=== PATIENT | female | born 1970 | race Caucasian/White ===

== ENCOUNTER → 2023-09-27 | Day surgery (SDC) | payer BC ==
--- NOTE | 2023-09-26 18:09 | HP ---
HISTORY AND PHYSICAL CHIEF COMPLAINT: Chronic laryngitis. HISTORY OF PRESENT ILLNESS: This patient is a 52-year-old female, who was recently seen in my office, complaining of having chronic laryngitis for at least a year. The patient quit smoking approximately 2 packs of cigarettes per day approximately 1 year ago and has not used any tobacco products since. She has seen Dr. Randy Car in the past, who felt that she might have a lesion on her vocal cord. At the time that she is seen in my office, clinical examination of the oropharynx including indirect laryngoscopy revealed evidence of a moderate polypoid lesion located in the midportion of the left true vocal cord. I am not able to see all of her larynx because of an overhanging epiglottis. It was recommend the patient undergo a suspension microlaryngoscopy with biopsy and possible laser of a left true vocal cord lesion under general anesthesia. PAST MEDICAL HISTORY: Reveals that the patient has no known allergies to medications. CURRENT MEDICATIONS: Include: 1. Wegovy (for weight loss). 2. Adderall. 3. Amlodipine. 4. Losartan. 5. Prilosec. 6. Trelegy. 7. Trulicity. 8. Albuterol. REVIEW OF SYSTEMS: CARDIOVASCULAR SYSTEM: Positive for hypertension. RESPIRATORY: Positive for emphysema/COPD. GASTROINTESTINAL: Positive for GERD (gastroesophageal reflux disorder). METABOLIC ENDOCRINE: Negative. Remainder of the review of systems is unremarkable. PREVIOUS SURGERIES: Include cholecystectomy, upper endoscopy of the stomach. She is 4 para, 4 , 0 miscarriage. PHYSICAL EXAMINATION: GENERAL: This patient is a 52-year-old female, who was alert and cooperative. HEENT: The patient is normocephalic. Tympanic membranes are normal. Middle ear spaces are free of any fluid or infection. Pupils are equal, round, and reactive to light and accommodation. Extraocular movements within normal limits. Intranasal examination reveals moderate septal deviation with compensatory hypertrophy of the inferior turbinates. Examination of the oropharynx including indirect laryngoscopy, reveals an apparent polypoid lesion on the left true vocal cord. Remainder of the head and neck exam is essentially unremarkable. CHEST/CARDIOVASCULAR: Both lung martin are clear to percussion and auscultation. The patient is in regular sinus rhythm. Lung sounds are distant, but there are no rales, rhonchi, or wheezes. The patient has regular sinus rhythm. S1 and S2 are present without any murmurs, S3s or S4s. Peripheral pulses are bilaterally symmetrical. ABDOMEN: There is no evidence any masses, megaly, or tenderness. The abdomen is soft. SKIN: Unremarkable. MUSCULOSKELETAL: Within normal limits. NEUROLOGICAL: Within normal limits. PELVIC/RECTAL: Deferred at this time because the patient has this done on a regular basis at her family physician's office. The remainder of physical exam is unremarkable. ASSESSMENT: Chronic laryngitis with laryngeal lesion of the left true vocal cord. PLAN: The patient is scheduled to undergo a suspension microlaryngoscopy with biopsy and laser of a lesion of the left true vocal cord under general anesthesia in a.m. Attention, RNs in the pre-surgical area. I have ordered for this patient to receive 1000 mg of Ofirmev IV to be given once an intravenous line has been established. I have also ordered for her to receive 2 g of Rocephin IV to be given once an intravenous line has been established. If the pharmacy department sends a different pre-surgical prophylactic antibiotic to the pre-surgical area for this patient, please cancel that order and return the medication to the pharmacy department. Also make sure that the patient's account is credited appropriately. I have discussed the risks, benefits and alternative therapies for the above-mentioned procedure and for both sedation/analgesia as well as necessary blood product administration, if indicated, as they pertain to this patient. The patient has indicated her understanding and acceptance of the risks and procedures discussed. MMODL / IJN: [id number] /
[~2023-09-27] MED LIST: DEXAMETHASONE SOD PHOSPHATE 10 MG/ML 1 ML VIAL ONE; HYDROmorphone (PF) 1 MG/ML ONE; HYDROmorphone 0.5 MG/0.5 ML SYRINGE IVP PRN; LIDOCAINE 1% INJ 10MG/ML (20 ML MDV) ONE; MIDAZOLAM 2 MG/2 ML VIAL IV PRN; MIDAZOLAM 2 MG/2 ML VIAL ONE; PHENYLEPHRINE 10 MG/ML VIAL ONE; PROPOFOL 10 MG/ML 20 ML VIAL IV ONE; Pre Op ABX Message 1 EACH MISC MISCELLANE ONE; SUCCINYLCHOLINE CHLORIDE 200 MG/10 ML VIAL IV ONE; fentaNYL (PF) 50 MCG/ML 2 ML AMP IVP PRN; fentaNYL (PF) 50 MCG/ML 2 ML AMP ONE
[2023-09-27] MEDS: IV FLUID CONTINUATION 1,000 ML IV ONE (10:45)
[2023-09-27] MEDS: LACTATED RINGERS 1,000 ML IV SCH (10:45)
[2023-09-27] MEDS: LIDOCAINE 1% (10MG/ML) FOR IV START INTRADERMA PRN (10:45)
[2023-09-27] MEDS: ONDANSETRON 4 MG/2 ML VIAL IVP ONE (10:55)
[2023-09-27] MEDS: DEXAMETHASONE SOD PHOSPHATE 4 MG/ML 1 ML VIAL IV ONE (10:56)
[2023-09-27] MEDS: ACETAMINOPHEN IV (For NPO) 1,000 MG in EMPTY BAG 1 BAG IVPB ONE (10:56)
[2023-09-27 11:16] VITALS: RESP 16
[2023-09-27 11:16] LABS: Glucose,Whole Blood 102 mg/dL (70-110)
[2023-09-27 12:54] VITALS: TEMP 97
[2023-09-27] MEDS: LACTATED RINGERS 1,000 ML IV ONE (13:10)
[2023-09-27 13:47] VITALS: BP 127/80; PULSE 75
--- NOTE | 2023-09-28 23:23 | OP ---
OPERATIVE REPORT DATE OF SERVICE : 09/27/2023 PREOPERATIVE DIAGNOSIS: Chronic laryngitis with left true vocal cord lesion. POSTOPERATIVE DIAGNOSIS: Chronic laryngitis with left true vocal cord lesion, final pathology is pending. ANESTHESIA: General. OPERATIVE PROCEDURE: Suspension microlaryngoscopy with biopsy of left true vocal cord lesion and CO2 laser of left true vocal cord. COMPLICATIONS: None. ESTIMATED BLOOD LOSS: Zero. DESCRIPTION OF PROCEDURE: The patient was placed on the operating table in supine position. After uneventful induction and endotracheal intubation, satisfactory general anesthesia was obtained. Next, the patient was draped in usual customary fashion. Following which, the laryngoscope was introduced into the patient's oropharynx and the entire hypopharynx including the right and left piriform sinuses, base of tongue, valleculae and epiglottis were inspected and found to be free of any suspicious lesions. Next, the tip of the laryngoscope was presented at the laryngeal introitus and it was advanced. Next, the Lewy apparatus was attached to the handle of the laryngoscope and the laryngoscope was suspended on the patient's chest. Next, using the Zeiss operating microscope and under magnified visualization, one could see that there was a large polypoid-like lesion located on the left true vocal cord. Next, using up-biting microlaryngeal forceps, several biopsies of this lesion were taken and sent to pathology in formalin. Next, the remaining portion of this lesion was vaporized using the CO2 laser on the appropriate setting. The patient was given 10 mg of dexamethasone intraoperatively to reduce any postop laryngeal edema. At this point, the procedure was terminated and there were no intraoperative complications. The patient tolerated the procedure well and was returned to the recovery room in satisfactory condition. MMODL / IJN: [id number] /
== END | disposition home or self-care (01) ==
LOC: OR 09:51
PROVIDERS: ATTEND Otolaryngology
DX: J37.0 Chronic laryngitis (principal); J38.1 Polyp of vocal cord and larynx; J43.9 Emphysema, unspecified; K21.9 Gastro-esophageal reflux disease without esophagitis; I10 Essential (primary) hypertension; Z87.891 Personal history of nicotine dependence; Z79.85 Long-term (current) use of injectable non-insulin antidiabetic drugs; Z79.899 Other long term (current) drug therapy; Z79.51 Long term (current) use of inhaled steroids
CPT/HCPCS: 81025; 88305; 84132; 31536; J2250; J0330; J1100 ×2; J2405; J2001; J3010; J1170; J0131; J2704; J2371